=== PATIENT | female | born 1990 | race Caucasian/White ===

== ENCOUNTER 2019-06-09 10:22 | Emergency (ER) | payer OTHER ==
[2019-06-09 10:45] VITALS: BP 128/80
--- NOTE | 2019-06-09 11:06 | UC ---
Back Pain HPI - HPI Summary HPI Summary: 28-year-old female who was swimming on Saturday, 4 days ago when she felt like a muscle strain in her left lower chest. She states that was followed by a mild asthma attack, which resolved spontaneously. She states since then she had day when the pain was around her entire lower chest with pain on deep inspiration. Today she states she feels better but she still has pain on respiration in the right lower chest. She denies any recent illness however a month ago she had an upper respiratory illness which resolved on its own. She is a nonsmoker. No history of DVT or pulmonary embolus. No family history. She has an IUD and gets regular periods. - History of Current Complaint Chief Complaint: UCGeneralIllness Stated Complaint: BACK/SIDE PAIN Time Seen by Provider: 06/09/19 10:42 Hx Obtained From: Patient Hx Last Menstrual Period: last week ?: No Onset/Duration: Sudden Onset Timing: Intermittent Severity Initially: Moderate Severity Currently: Mild Pain Intensity: 2 Character: Unable to Describe Aggravating Factor(s): Other - Deep breaths Alleviating Factor(s): Rest Associated Signs And Symptoms: Positive: Negative - Allergies/Home Medications Allergies/Adverse Reactions: Allergies Allergy/AdvReac Type Severity Reaction Status Date / Time clarithromycin Allergy Hives Verified 06/09/19 10:51 Penicillins Allergy Hives Verified 06/09/19 10:51 Sulfa (Sulfonamide Allergy Hives Verified 06/09/19 10:51 Antibiotics) tetanus vaccine Allergy Swelling Uncoded 06/09/19 10:46 Home Medications: Home Medications Isotretinoin [Claravis] 30 mg PO BID 06/09/19 [History Confirmed 06/09/19] PMH/Surg Hx/FS Hx/Imm Hx Previously Healthy: Yes Neurological History: Seizures, Migraine - Patient also just started on Accutane 2 months ago. - Surgical History Surgical History: Yes Surgery Procedure, Year, and Place: B/L cataracts 11/29. wisdom teeth - Family History Known Family History: Positive: Non-Contributory - Social History Alcohol Use: Rare Substance Use Type: None Smoking Status (MU): Never Smoked Tobacco Review of Systems All Other Systems Reviewed And Are Negative: Yes Cardiovascular: Positive: Chest Pain - Today patient states the pain is better however she still has pain on deep inspiration right lower chest. Is Patient Immunocompromised?: No Physical Exam Triage Information Reviewed: Yes Appearance: Well-Appearing, No Pain Distress, Well-Nourished Vital Signs: Initial Vital Signs Temp 98 F 06/09/19 10:37 Pulse 101 06/09/19 10:37 Resp 18 06/09/19 10:37 BP 128/80 06/09/19 10:37 Pulse Ox 100 06/09/19 10:37 Vital Signs Reviewed: Yes Eyes: Positive: Conjunctiva Clear ENT: Positive: Hearing grossly normal, Pharynx normal, TMs normal, Uvula midline Neck: Positive: Supple, Nontender, No Lymphadenopathy Respiratory: Positive: Chest non-tender, Lungs clear, Normal breath sounds, No respiratory distress Cardiovascular: Positive: RRR, No Murmur, Pulses Normal, Brisk Capillary Refill Abdomen Description: Positive: Nontender, No Organomegaly, Soft. Negative: CVA Tenderness (R), CVA Tenderness (L) Bowel Sounds: Positive: Present Musculoskeletal: Positive: Strength Intact, ROM Intact, No Edema Neurological: Positive: Alert, Muscle Tone Normal Psychological Exam: Normal Skin Exam: Normal Back Pain Course/Dx - Course Course Of Treatment: Chest x-ray: 2 views of the chest including dual energy PA views demonstrate no mediastinal shift. Heart is of normal size and configuration. Lung keyes are clear. IMPRESSION: No active cardiopulmonary disease is noted. I consulted with Dr. Mesa and at this point time is felt this may be a muscle strain. If the d-dimer is elevated then she will be referred to the emergency room. D-dimer: pending..... We were notified at approximately 1530 that there was not enough blood to do the d-dimer. The nurses contacted the patient and advised her to follow-up in the emergency room. I think at this point in time because we do not have a d-dimer result she does need to be evaluated in the emergency room where they will be able to do an adequate d-dimer there. Please see nurse' s notes. - Differential Dx/Diagnosis Provider Diagnosis: Chest wall pain - Physician Notifications Discussed Care With: Chilango Mesa Time Discussed With Above Provider: 11:00 Discharge - Sign-Out/Discharge Documenting (check all that apply): Patient Departure All imaging exams completed and their final reports reviewed: Yes - Discharge Plan Condition: Good Disposition: HOME Patient Education Materials: Muscle Strain (DC) Referrals: Marlene Sanchez MD [Primary Care Provider] - Additional Instructions: Take Motrin every 8 hours over the next day or 2. Follow-up in the emergency room if he develops any worsening shortness of breath, chest pain. We will call you with the results of the d-dimer. If it is elevated you'll need to go to the emergency room and if that's normal then you should follow up with her primary care provider in 3 or 4 days if no improvement. You are at very low risk for pulmonary embolus. - Billing Disposition and Condition Condition: GOOD Disposition: Home
--- NOTE | 2019-06-09 16:24 | UC ---
- Progress Note Progress Note: Addendum to initial note. Carter's score was 1.5. Course/Dx - Diagnoses Provider Diagnoses: Chest wall pain - Provider Notifications Time Discussed With Above Provider: 11:00 Discharge - Sign-Out/Discharge Documenting (check all that apply): Post-Discharge Follow Up All imaging exams completed and their final reports reviewed: Yes - Discharge Plan Condition: Good Disposition: HOME Patient Education Materials: Muscle Strain (DC) Referrals: Marlene Sanchez MD [Primary Care Provider] - Additional Instructions: Take Motrin every 8 hours over the next day or 2. Follow-up in the emergency room if he develops any worsening shortness of breath, chest pain. We will call you with the results of the d-dimer. If it is elevated you'll need to go to the emergency room and if that's normal then you should follow up with her primary care provider in 3 or 4 days if no improvement. You are at very low risk for pulmonary embolus. - Billing Disposition and Condition Condition: GOOD Disposition: Home
== END 2019-06-09 11:33 | disposition home or self-care (01) ==
LOC: UCCORT 10:22
DX: R07.89 Other chest pain (principal); G43.909 Migraine, unspecified, not intractable, without status migrainosus
CPT/HCPCS: 36415; 71046; 99211; G0463